=== PATIENT | female | born 1955 | race Caucasian/White ===

== ENCOUNTER 2018-09-17 18:45 | Emergency (ER) | payer OTHER ==
[2018-09-17] MEDS ORDERED: KETOROLAC TROMETHAMINE 60 MG/2 ML VIAL IM ONE (18:50)
[2018-09-17] MEDS ORDERED: fentaNYL CITRATE/PF 100 MCG/2 ML INJ. ONE (18:50)
== END 2018-09-17 20:05 ==
LOC: ED 18:45
DX: S52.514A Nondisplaced fracture of right radial styloid process, initial encounter for closed fracture (principal); S52.614A Nondisplaced fracture of right ulna styloid process, initial encounter for closed fracture; W01.0XXA Fall on same level from slipping, tripping and stumbling without subsequent striking against object, initial encounter
CPT/HCPCS: 73110; 96372; 99282; 99283; J1885; J3010